=== PATIENT | female | born 1990 | race Caucasian/White ===

== ENCOUNTER 2020-04-19 14:59 | Emergency (ER) | payer OTHER, SELFPAY ==
--- NOTE | 2020-04-19 15:15 | ECG_ITS ---
Measurements Intervals [place] Rate: 69 P: 48 VA: 132 QRS: 14 QRSD: 113 T: 37 QT: 443 QTc: 476 Interpretive Statements SINUS RHYTHM INTRAVENTRICULAR CONDUCTION DELAY BASELINE ARTIFACT- I, II, III, AVR, AVL, AVF BORDERLINE ECG Electronically Signed On 04-19-2020 19:01:57 CDT by Jovany Short D.O.
[2020-04-19] MEDS: SODIUM CHLORIDE 0.9% IV 1,000 ML 999 ML (15:17)
--- NOTE | 2020-04-19 15:18 | ED.GENADULT ---
HPI - General Adult General Chief complaint: Weakness Stated complaint: nausea and vomiting Source: patient Mode of arrival: ambulatory Limitations: no limitations History of Present Illness HPI narrative: 29-year-old developed a occipital constant tight headache 03/16 at 11:00 a.m.. She awoke from a nap at 2:30 sweating with nausea. She vomited 3 times and had 2 episodes of non-bloody non-mucousy diarrhea. LMP 04/03, is not using condoms. She has a history of migraine headaches. No photophobia with this headache. She believes her father had his first heat attack when he was 19 y.o. Related Data Home Medications Medication Instructions Recorded Confirmed fluoxetine 40 mg PO DAILY 10/20/19 04/19/20 Allergies Allergy/AdvReac Type Severity Reaction Status Date / Time No Known Allergies Allergy Unverified 12/21/17 10:57 Review of Systems Constitutional: Constitutional: Denies chills and Denies fever(s) ENT: Denies nasal congestion and Denies sore throat Cardiovascular: Cardiovascular: Denies chest pain Respiratory: Respiratory: Denies cough and Denies dyspnea Gastrointestinal: Gastrointestinal: Denies abdominal pain Genitourinary: Genitourinary: Denies dysuria and Denies vaginal discharge Musculoskeletal: Musculoskeletal: Denies myalgias and Denies arthralgias Integumentary/Breasts: Skin/Breast: Denies rash Neurologic: Comments: gets migraine headaches several times/month which do no resemble the headache today. Psychiatric: Psychiatric: Denies anxiety and Denies depression [facility] Past Medical History Medical History Anxiety Migraine Family History Family History (Updated 04/19/20 @ 15:23 by Alex Senior MD) Father Diabetes mellitus Malignant neoplasm of prostate Pacemaker FHx: premature coronary heart disease, Onset Age: 17 [place] Exam Const: General: no acute distress and alert Orientation/consciousness: patient oriented x3 Eyes: EOM: EOMs intact bilaterally Direct Ophthalmoscopy: no photophobia Neck: Neck: no lymphadenopathy Chest: Chest palpation & inspection: normal inspection of the chest Resp: Auscultation: clear to auscultation bilaterally Cardio: Rate: regular rate Rhythm: regular rhythm GI: GI Palp: Yes Soft to palpation, No Tenderness to palpation present (GI) and No Guarding due to palpation present (GI) Back/Spine/Pelvis: Back: no CVA tenderness Skin: General skin exam: normal color Rashes: rash noted Neuro: General: moves all extremities Course Course Emergency Course: At 4:00 p.m. patient's headache 3/10, sweating has decreased, no nausea. Has not urinated after 800 mL saline. At 5:30 she is no longer sweating, rates her headache as a 1- 2, has no nausea or sweating. Vital Signs Vital signs: Vital Signs Temperature 36.7 C 04/19/20 15:25 Pulse Rate 70 04/19/20 15:25 Respiratory Rate 04/19/20 15:25 Blood Pressure 142/91 H 04/19/20 15:25 Pulse Oximetry 100 04/19/20 15:25 Temperature 36.7 C 04/19/20 15:25 Pulse Rate 76 04/19/20 17:51 Respiratory Rate 04/19/20 15:25 Blood Pressure 154/98 H 04/19/20 17:51 Pulse Oximetry 100 04/19/20 17:51 Medical Decision Making Vital Signs Vital Signs: Vital Signs Temperature 36.7 C 04/19/20 15:25 Pulse Rate 70 04/19/20 15:25 Respiratory Rate 04/19/20 15:25 Blood Pressure 142/91 H 04/19/20 15:25 Pulse Oximetry 100 04/19/20 15:25 Temperature 36.7 C 04/19/20 15:25 Pulse Rate 76 04/19/20 17:51 Respiratory Rate 04/19/20 15:25 Blood Pressure 154/98 H 04/19/20 17:51 Pulse Oximetry 100 04/19/20 17:51 Lab Data Result diagrams: 04/19/20 15:39 04/19/20 15:39 Labs: Lab Results 04/19/20 04/19/20 04/19/20 Range/Units 15:25 15:25 15:39 WBC 11.7 H (4.8-10.8) K/mm3 RBC 4.26 (4.20-5.40) M/mm3 Hgb 13.2 (12.0-15.
[2020-04-19 15:25] VITALS: BP 142/91; PULSE 70; RESP 19; TEMP 36.7; O2SAT 100
[2020-04-19] MEDS: METOCLOPRAMIDE HCL INJ 10 MG/2 ML VIAL IV PUSH ×2 (15:34→16:37)
[2020-04-19 15:46] LABS: Hematocrit 39.9 % (35.0-49.0); Hemoglobin 13.2 g/dL (12.0-15.0); Mean Corpuscular HGB Conc 33.1 g/dL (32.0-36.0); Mean Corpuscular Volume 93.7 fL (78.0-102.0); Mean Platelet Volume 9.5 fl (9.2-11.8); Platelet Count Result 290 K/mm3 (150-420); Red Blood Count 4.26 M/mm3 (4.20-5.40); Red Cell Distribution Width 15.2 % (11.6-14.4); White Blood Count 11.7 K/mm3 (4.8-10.8)
[2020-04-19 15:48] LABS: Add Urine Microscopic? YES; Appearance Urine Sl Cloudy (Clear); Bilirubin Urine Negative (Negative); Blood Urine 1+ (Negative); Color Urine Straw (Yellow); Glucose Urine UA Negative (Negative); Ketones Urine 1+ (Negative); Leukocyte Esterase Ur Negative (Negative); Nitrate Urine Negative (Negative); Protein Urine 2+ (Negative); Urobilinogen Urine 0.2 mg/dL (0.2-1.0)
[2020-04-19 15:49] LABS: Pregnancy On Board Control POS; Urine Pregnancy Test Negative
[2020-04-19 15:57] LABS: Squamous Epithelial Cell Urine Few /hpf (Few); WBC Urine None seen /hpf (0-3)
[2020-04-19 15:58] LABS: Amorphous Sediment Urine Moderate; Bacteria Urine Trace /hpf; Mucus Urine None seen /lpf
[2020-04-19 16:05] LABS: Alanine Aminotransferase 46 U/L (14-59); Alkaline Phosphatase 109 U/L (46-116); Aspartate Amino Transferase 29 U/L (15-37); Bilirubin,Total 0.5 mg/dL (0.00-1.00); Blood Urea Nitrogen 5 mg/dL (7-18); Calcium 8.8 mg/dL (8.5-10.1); Carbon Dioxide 23 mmol/L (21-32); Chloride 103 mmol/L (98-108); Estimated Glomerular Filt Rate > 60; Glucose 134 mg/dL (70-99); Osmolality Calculated 287 mOsm/kg (285-295); Sodium 139 mmol/L (136-145); Total Protein 8.2 g/dL (6.4-8.2); Troponin I < 0.02 ng/mL (0.00-0.056)
[2020-04-19] MEDS: LACTATED RINGERS 1,000 ML 999 ML IV CONT (16:38)
[2020-04-19 17:32] LABS: Magnesium 1.8 mg/dL (1.8-2.4)
[2020-04-19 17:51] VITALS: BP 154/98; PULSE 76; O2SAT 100
== END 2020-04-19 17:54 | disposition home or self-care (01) ==
PROVIDERS: Emergency Provider Family Medicine; PCP Family Medicine
DX: E87.6 Hypokalemia (principal); R51 Headache; R11.0 Nausea
CPT/HCPCS: 36415; 80053; 81001; 81025; 83735; 84484; 85027; 93005; 96361; 96374; 96375; 99283; 99284; J1200; J2765; J7030; J7120

== ENCOUNTER 2020-05-31 10:47 | Emergency (ER) | payer OTHER, SELFPAY ==
--- NOTE | ~2020-05-31 | US_ITS ---
US OB <= 14 weeks fetus DATE: 05/31/2020 12:02 INDICATION: 10 week gestation TECHNIQUE: Routine imaging and Doppler analysis COMPARISON: None FINDINGS: The uterus measures 9.5 cm height, 6.1 cm AP and 8.5 cm transverse dimension. A normally shaped intrauterine gestational sac is identified with a mean sac diameter of 2.51 cm, con sistent with 7 weeks 3 days estimated gestational age. [place]-rump length measurement averages 1.72 cm , consistent with 8 weeks 1 day estimated gestational age. heart rate of 169 bpm. A yolk sac is identified. The ovaries are unremarkable, with evidence of blood flow on Doppler and color flow imaging. No pelvi c mass or abnormal pelvic fluid collection is evident. IMPRESSION: Estimated gestational age of 8 weeks 1 day +/- 5 days by crown-rump length; ELINOR by ultras ound is 01/09/2021, compared to 01/08/2021 by LMP. Reviewed, dictated and finalized at [facility]. Reviewed, dictated and finalized at [facility]. IMPRESSION: Estimated gestational age of 8 weeks 1 day +/- 5 days by crown-rump length; ELINOR by ultrasound is 01/09/2021, compared to 01/08/2021 by LMP.
[2020-05-31 10:51] VITALS: BP 176/108; PULSE 104; RESP 19; TEMP 36.8; O2SAT 100
--- NOTE | 2020-05-31 11:10 | ED.NAVMDI ---
HPI - Nausea/Vomiting/Diarrhea General Chief complaint: Nausea/Vomiting/Diarrhea Stated complaint: n/v with ( 10 weeks gest) Time Seen by Provider: 05/31/20 10:51 Source: patient Mode of arrival: ambulatory Limitations: no limitations History of Present Illness HPI Narrative: This patient is a 30 year old female who presents for evaluation nausea , vomiting and diarrhea. Patient states she thinks she is 10 weeks but she has not seen OB yet. She is here for nausea, vomitin and diarrhea for 3 days. She denies fever, chills, cough, or sob. She also denies urinary symptoms or abdominal pain. She had 2 episodes diarrhea today . She reports 3 episodes of ememis today and she had too numerous to count yesterday. MD elicited complaint: nausea, vomiting and diarrhea Associated nausea: Yes Associated abdominal pain: No Related Data Allergies Allergy/AdvReac Type Severity Reaction Status Date / Time No Known Allergies Allergy Verified 05/31/20 10:55 Review of Systems Review of Systems: All systems reviewed & are unremarkable except as noted in HPI and below Constitutional: Constitutional: Denies chills and Denies fever(s) Eyes: Eyes: Reports no additional eye complaints ENT: Denies sore throat Cardiovascular: Cardiovascular: Denies chest pain Respiratory: Respiratory: Denies cough and Denies dyspnea Gastrointestinal: Gastrointestinal: Denies abdominal pain, Reports diarrhea, Reports nausea and Reports vomiting Genitourinary: Genitourinary: Denies abnormal vaginal bleeding PMFSH Family History Family History (Updated 04/19/20 @ 15:23 by Alex Senior MD) Father Diabetes mellitus Malignant neoplasm of prostate Pacemaker FHx: premature coronary heart disease, Onset Age: 17 [place] Exam Narrative: Exam Narrative: GENERAL: Well-appearing, well-nourished, and in no acute distress. HEAD: Normocephalic, atraumatic EYES: PERRLA and EOMI, conjunctiva clear without discharge THROAT:Mucous membranes moist, Oropharynx normal without erythema, exudate, peritonsillar swelling or fluctuance NECK: Supple, without lymphadenopathy or mass RESPIRATORY: No respiratory distress, Airway patent, Respirations non-labored, Clear to auscultation without rales, rhonchi or wheeze HEART: Regular rate and rhythm. No murmur heard. Normal peripheral pulses. ABDOMEN: Soft, nontender, nondistended, normal active bowel sounds. No masses. No rebound or guarding, No organomegaly. EXTREMITIES: No edema, normal strength with full range of motion. SKIN: Warm, dry, normal color without rash NEURO: Alert and oriented x3. CN 2-12 grossly intact. No focal deficits. PSYCH: Normal mood and affect. Course Reevaluation(s) Reevaluation #1: Patient states she feels better . She denies nausea or vomiting with PO challenge. Date: 05/31/20 Time: 12:49 Vital Signs Vital signs: Vital Signs Temperature 98.3 F 05/31/20 10:51 Pulse Rate 104 H 05/31/20 10:51 Respiratory Rate 19 05/31/20 10:51 Blood Pressure 176/108 H 05/31/20 10:51 Pulse Oximetry 100 05/31/20 10:51 Temperature 98.3 F 05/31/20 10:51 Pulse Rate 83 05/31/20 13:11 Respiratory Rate 18 05/31/20 13:11 Blood Pressure 155/86 H 05/31/20 13:11 Pulse Oximetry 99 05/31/20 13:11 MDM - Nausea/Vomiting/Diarrhea Lab Data Result diagrams: 05/31/20 11:17 05/31/20 11:17 Labs: Lab Results 05/31/20 05/31/20 05/31/20 Range/Units 11:17 11:17 11:17 WBC 11.7 H (4.5-10.0) K/mm3 RBC 4.52 (4.2-5.4) M/mm3 Hgb 13.9 (12.0-15.0) g/dL Hct 41.1 (37.0-47.0) % MCV 90.9 (80-100) fl MCH 30.8 (26-34) pg MCHC 33.8 (32-36) g/dl RDW 13.6 (11.5-14.5) % Plt Count 377 H (150-375) k/mm3 MPV 9.1 (7.4-10.4) fl Immature Gran % (Auto) 0.5 (0-0.5) % Neut % (Auto) 83.2 H (45.5-73.1) % Lymph % (Auto) 11.3 L (18.3-44.2) % [place] % (Auto) 4.4 (2.6-8.5) % Eos %
[2020-05-31] MEDS: METOCLOPRAMIDE HCL INJ 10 MG/2 ML VIAL IV PUSH (11:11)
[2020-05-31] MEDS: diphenhydrAMINE HCl INJ 50 MG/ML VIAL 25 MG IV PUSH (11:15)
[2020-05-31] MEDS: DEXTROSE 5%/LACTATED RINGERS 1,000 ML 1000 ML IV CONT (11:18)
[2020-05-31 11:25] VITALS: BP 155/99; BP 159/93; PULSE 82; PULSE 85
[2020-05-31 11:26] VITALS: BP 148/105; PULSE 90
[2020-05-31 11:30] LABS: Basophils Percent Auto 0.3 % (0.2-1.2); Eosinophils Percent Auto 0.3 % (0-4.4); Hematocrit 41.1 % (37.0-47.0); Hemoglobin 13.9 g/dL (12.0-15.0); Immature Granulocyte Absolute 0.06 K/mm3 (0.00-0.031); Immature Granulocyte Percent A 0.5 % (0-0.5); Lymphocytes Absolute Auto 1.32 K/mm3 (0.9-3.2); Lymphocytes Percent Auto 11.3 % (18.3-44.2); Mean Corpuscular HGB Conc 33.8 g/dl (32-36); Mean Corpuscular Hemoglobin 30.8 pg (26-34); Mean Corpuscular Volume 90.9 fl (80-100); Mean Platelet Volume 9.1 fl (7.4-10.4); Monocytes Absolute Auto 0.5 K/mm3 (0.1-0.6); Monocytes Percent Auto 4.4 % (2.6-8.5); Neutrophils Absolute Auto 9.7 K/mm3 (1.3-6.7); Neutrophils Percent Auto 83.2 % (45.5-73.1); Platelet Count Result 377 k/mm3 (150-375); Red Blood Count 4.52 M/mm3 (4.2-5.4); Red Cell Distribution Width 13.6 % (11.5-14.5); White Blood Count 11.7 K/mm3 (4.5-10.0)
[2020-05-31 11:40] LABS: Alanine Aminotransferase 41 U/L (4-35); Albumin Level 4.8 g/dL (3.5-5.1); Alkaline Phosphatase 133 U/L (38-126); Anion Gap 16.3 mmol/L (7-16); Aspartate Amino Transferase 34 U/L (14-36); Bilirubin,Total 0.4 mg/dL (0.2-1.3); Blood Urea Nitrogen 5 mg/dL (7-17); Carbon Dioxide 23 mmol/L (22-30); Chloride 101 mmol/L (98-107); Estimated CRCL calculation 178 ml/min; Estimated Glomerular Filt Rate > 60; Glucose 105 mg/dL (65-105); Lipase 69 U/L (23-300); Potassium 3.3 mmol/L (3.4-5.0); Sodium 137 mmol/L (137-145)
[2020-05-31 11:41] LABS: Add Urine Microscopic? YES; Appearance Urine Cloudy (Clear); Bacteria Urine Trace /hpf; Bilirubin Urine Negative (Negative); Blood Urine 2+ (Negative); Color Urine Yellow (Yellow); Glucose Urine UA Negative (Negative); Ketones Urine 1+ mg/dL (Negative); Leukocyte Esterase Ur Trace LEU/UL (Negative); Mucus Urine Heavy /lpf; Nitrate Urine Negative (Negative); Protein Urine 2+ mg/dL (Negative); Specific Grav Ur 1.024 (1.001-1.035); Squamous Epithelial Cell Urine Many /hpf (Few); Urobilinogen Urine Negative mg/dL (<2.0)
[2020-05-31 13:11] VITALS: BP 155/86; PULSE 83; RESP 18; O2SAT 99
== END 2020-05-31 13:12 | disposition home or self-care (01) ==
PROVIDERS: Emergency Provider General Practice; PCP Family Medicine
DX: O21.8 Other vomiting complicating pregnancy (principal); K52.9 Noninfective gastroenteritis and colitis, unspecified; Z3A.08 8 weeks gestation of pregnancy
CPT/HCPCS: 36415; 76801; 80053; 81001; 81025; 83690; 84702; 85025; 87086; 87088; 96361; 96374; 96375; 99284; J1200; J2765; J7121

== ENCOUNTER 2020-06-11 23:52 | Emergency (ER) | payer OTHER, SELFPAY ==
[2020-06-11 23:55] VITALS: BP 150/105; PULSE 120; RESP 19; TEMP 36.4; O2SAT 98
[2020-06-12 00:23] LABS: Basophils Percent Auto 0.3 % (0.2-1.2); Eosinophils Percent Auto 0.3 % (0-4.4); Hematocrit 42.8 % (37.0-47.0); Hemoglobin 14.8 g/dL (12.0-15.0); Immature Granulocyte Absolute 0.07 K/mm3 (0.00-0.031); Immature Granulocyte Percent A 0.5 % (0-0.5); Lymphocytes Absolute Auto 2.11 K/mm3 (0.9-3.2); Mean Corpuscular HGB Conc 34.6 g/dl (32-36); Mean Corpuscular Hemoglobin 31.2 pg (26-34); Mean Corpuscular Volume 90.3 fl (80-100); Mean Platelet Volume 9.1 fl (7.4-10.4); Monocytes Absolute Auto 0.7 K/mm3 (0.1-0.6); Monocytes Percent Auto 5.3 % (2.6-8.5); Neutrophils Absolute Auto 11.1 K/mm3 (1.3-6.7); Neutrophils Percent Auto 78.6 % (45.5-73.1); Platelet Count Result 386 k/mm3 (150-375); Red Blood Count 4.74 M/mm3 (4.2-5.4); Red Cell Distribution Width 13.2 % (11.5-14.5); White Blood Count 14.1 K/mm3 (4.5-10.0)
[2020-06-12 00:35] LABS: Alanine Aminotransferase 36 U/L (4-35); Albumin Level 4.9 g/dL (3.5-5.1); Alkaline Phosphatase 126 U/L (38-126); Anion Gap 15.3 mmol/L (7-16); Aspartate Amino Transferase 32 U/L (14-36); Bilirubin,Total 0.8 mg/dL (0.2-1.3); Blood Urea Nitrogen 5 mg/dL (7-17); Calcium 9.8 mg/dL (8.4-10.2); Carbon Dioxide 24 mmol/L (22-30); Chloride 97 mmol/L (98-107); Estimated CRCL calculation 146 ml/min; Estimated Glomerular Filt Rate > 60; Glucose 122 mg/dL (65-105); Lipase 66 U/L (23-300); Potassium 3.3 mmol/L (3.4-5.0); Sodium 133 mmol/L (137-145)
[2020-06-12] MEDS: DEXTROSE 5%/0.45% SOD CHL 1,000 ML 1000 ML IV CONT (00:51)
[2020-06-12 00:52] LABS: Add Urine Microscopic? YES; Appearance Urine Cloudy (Clear); Bacteria Urine Trace /hpf; Bilirubin Urine Negative (Negative); Blood Urine Negative (Negative); Color Urine Yellow (Yellow); Glucose Urine UA Negative (Negative); Ketones Urine 1+ mg/dL (Negative); Leukocyte Esterase Ur Trace LEU/UL (Negative); Mucus Urine Heavy /lpf; Nitrate Urine Negative (Negative); Protein Urine 2+ mg/dL (Negative); Specific Grav Ur 1.026 (1.001-1.035); Squamous Epithelial Cell Urine Many /hpf (Few); WBC Urine 16-20 /hpf
[2020-06-12] MEDS: METOCLOPRAMIDE HCL INJ 10 MG/2 ML VIAL IV PUSH (00:52)
--- NOTE | 2020-06-12 01:01 | ED.NAVMDI ---
HPI - Nausea/Vomiting/Diarrhea General Chief complaint: Nausea/Vomiting/Diarrhea Stated complaint: vomiting x 4 days 10 weeks preg Time Seen by Provider: 06/12/20 00:06 History of Present Illness HPI Narrative: She is currently 10 weeks . She reports nataly she has been vomiting for the past 4 days. She tried compazine without relief. No abdominal pain, vaginal bleeding, discharge, dysuria. Related Data Allergies Allergy/AdvReac Type Severity Reaction Status Date / Time No Known Allergies Allergy Verified 06/12/20 00:15 Review of Systems Review of Systems: All systems reviewed & are unremarkable except as noted in HPI and below Constitutional: Constitutional: Denies fever(s) and Denies weakness Cardiovascular: Cardiovascular: Denies chest pain Respiratory: Respiratory: Denies dyspnea Gastrointestinal: Gastrointestinal: Denies abdominal pain, Denies diarrhea, Reports nausea and Reports vomiting Genitourinary: Genitourinary: Denies hematuria and Denies dysuria Neurologic: Reports dizziness and Reports weakness PMFSH Past Medical History Medical History Anxiety Migraine Family History Family History Father Diabetes mellitus Malignant neoplasm of prostate Pacemaker FHx: premature coronary heart disease, Onset Age: 17 [place] Social History Social History Gender identity (if verbalized by the patient): Female Exam Const: General: no acute distress and alert Orientation/consciousness: patient oriented x3 HENMT: Head: normal to inspection Resp: Effort & Inspection: normal respiratory effort Auscultation: clear to auscultation bilaterally Cardio: Rate: regular rate Rhythm: regular rhythm GI: GI Palp: Yes Soft to palpation and No Tenderness to palpation present (GI) Skin: General skin exam: normal color Neuro: General: patient oriented x3 and moves all extremities Speech: normal speech Extrem: General: normal to inspection Course Vital Signs Vital signs: Vital Signs Temperature 36.4 C L 06/11/20 23:55 Pulse Rate 120 H 06/11/20 23:55 Respiratory Rate 19 06/11/20 23:55 Blood Pressure 150/105 H 06/11/20 23:55 Pulse Oximetry 98 06/11/20 23:55 Temperature 36.4 C L 06/11/20 23:55 Pulse Rate 94 06/12/20 02:20 Respiratory Rate 16 06/12/20 02:20 Blood Pressure 142/86 H 06/12/20 02:20 Pulse Oximetry 99 06/12/20 02:20 MDM - Nausea/Vomiting/Diarrhea MDM Narrative Medical decision making narrative: Feeling better after fluids. Medical Records Attestation: I reviewed the patient's medical records. Lab Data Attestation: I reviewed the patient's lab results. Result diagrams: 06/12/20 00:17 06/12/20 00:17 Labs: Lab Results 06/12/20 06/12/20 06/12/20 Range/Units 00:17 00:17 00:32 WBC 14.1 H (4.5-10.0) K/mm3 RBC 4.74 (4.2-5.4) M/mm3 Hgb 14.8 (12.0-15.0) g/dL Hct 42.8 (37.0-47.0) % MCV 90.3 (80-100) fl MCH 31.2 (26-34) pg MCHC 34.6 (32-36) g/dl RDW 13.2 (11.5-14.5) % Plt Count 386 H (150-375) k/mm3 MPV 9.1 (7.4-10.4) fl Immature Gran % (Auto) 0.5 (0-0.5) % Neut % (Auto) 78.6 H (45.5-73.1) % Lymph % (Auto) 15.0 L (18.3-44.2) % [place] % (Auto) 5.3 (2.6-8.5) % Eos % (Auto) 0.3 (0-4.4) % Baso % (Auto) 0.3 (0.2-1.2) % Lymph # (Auto) 2.11 (0.9-3.2) K/mm3 [place] # (Auto) 0.7 H (0.1-0.6) K/mm3 Eos # (Auto) 0.0 (0-0.3) K/mm3 Baso # (Auto) 0.0 (0.0-0.1) K/mm3 Abs Immat Gran (auto) 0.07 H (0.00-0.031) K/mm3 Absolute Neuts (auto) 11.1 H (1.3-6.7) K/mm3 Absolute Nucleated RBC 0.0 (0.0-0.012) K/mm3 Nucleated RBC % 0.0 (0.0-0.2) % Sodium 133 L (137-145) mmol/L Potassium 3.3 L (3.4-5.0) mmol/L Chloride 97 L (98-107) mmol/L Carbon Dioxid
[2020-06-12 02:20] VITALS: BP 142/86; PULSE 94; RESP 16; O2SAT 99
== END 2020-06-12 02:24 | disposition home or self-care (01) ==
PROVIDERS: Emergency Provider Emergency Medicine; PCP Family Medicine
DX: O21.9 Vomiting of pregnancy, unspecified (principal); Z3A.10 10 weeks gestation of pregnancy
CPT/HCPCS: 36415; 80053; 81001; 83690; 85025; 87086; 87088; 96361; 96374; 99284; J2765

== ENCOUNTER 2020-08-01 09:01 | Outpatient (CLI) | payer OTHER, SELFPAY ==
[2020-08-01 10:34] LABS: Hematocrit 33.8 % (37.0-47.0); Hemoglobin 11.8 g/dL (12.0-15.0); Mean Corpuscular HGB Conc 34.9 g/dl (32-36); Mean Corpuscular Hemoglobin 31.8 pg (26-34); Mean Corpuscular Volume 91.1 fl (80-100); Mean Platelet Volume 9.1 fl (7.4-10.4); Platelet Count Result 295 k/mm3 (150-375); Red Blood Count 3.71 M/mm3 (4.2-5.4); Red Cell Distribution Width 13.8 % (11.5-14.5); White Blood Count 11.3 K/mm3 (4.5-10.0)
[2020-08-01 10:47] LABS: Glucose 1 Hour PP 50gm Dose 120 mg/dL
[2020-08-01 11:35] LABS: HIV 1/2 Ab P24 Ag Result Negative (Negative)
[2020-08-01 13:50] LABS: Hepatitis B Surface Antigen Negative (Negative); Rubella IgG Antibody 37.7 IU/ML
[2020-08-04 11:44] LABS: Rapid Plasma Reagin Non-Reactive (NonReactive)
[2020-08-06 14:42] LABS: CMV IgG Antibody <0.60 U/mL (<0.60)
== END 2020-08-01 09:02 | disposition home or self-care (01) ==
LOC: ANHLAB 09:04
PROVIDERS: Visit Provider Obstetrics & Gynecology
DX: N92.5 Other specified irregular menstruation (principal); E66.9 Obesity, unspecified
CPT/HCPCS: 36415; 82947; 84702; 85027; 86592; 86644; 86703; 86747; 86762; 86787; 86850; 86900; 86901; 87086; 87088; 87340; G0432

== ENCOUNTER 2020-11-11 14:20 | Outpatient (CLI) | payer OTHER, SELFPAY ==
[2020-11-11 16:12] LABS: Hematocrit 29.7 % (37.0-47.0); Hemoglobin 9.6 g/dL (12.0-15.0); Mean Corpuscular HGB Conc 32.3 g/dl (32-36); Mean Corpuscular Volume 89.7 fl (80-100); Mean Platelet Volume 8.8 fl (7.4-10.4); Platelet Count Result 252 k/mm3 (150-375); Red Blood Count 3.31 M/mm3 (4.2-5.4); White Blood Count 10.9 K/mm3 (4.5-10.0)
[2020-11-11 16:16] LABS: Glucose 1 Hour PP 50gm Dose 160 mg/dL
[2020-11-11 17:04] LABS: HIV 1/2 Ab P24 Ag Result Negative (Negative)
== END 2020-11-11 14:21 | disposition home or self-care (01) ==
LOC: ANHLAB 14:22
PROVIDERS: Visit Provider Obstetrics & Gynecology
DX: Z34.92 Encounter for supervision of normal pregnancy, unspecified, second trimester (principal); Z3A.00 Weeks of gestation of pregnancy not specified
CPT/HCPCS: 36415; 82947; 85027; 86703; G0432

== ENCOUNTER 2020-11-20 08:17 | Outpatient (CLI) | payer OTHER, SELFPAY ==
[2020-11-20 09:04] LABS: Glucose Fasting Gestational 93 mg/dL (>/=95)
[2020-11-20 10:47] LABS: Glucose 1 Hour Gest 203 mg/dL (>/=180)
[2020-11-20 11:27] LABS: Glucose 2 Hour Gest 177 mg/dL (>/= 155)
[2020-11-20 12:57] LABS: Glucose 3 Hour Gest 140 mg/dL (>/=140)
== END 2020-11-20 08:18 | disposition home or self-care (01) ==
PROVIDERS: Visit Provider Obstetrics & Gynecology
DX: R73.09 Other abnormal glucose (principal)
CPT/HCPCS: 36415; 82951; 82952

== ENCOUNTER 2020-12-01 11:51 | Outpatient (RCR) | payer OTHER, SELFPAY ==
--- NOTE | ~2020-12-01 | US_ITS ---
EXAMINATION: US OB BPP wo non-stress DATE: 12/01/2020 12:56 INDICATION: Maternal gestational diabetes. Assess biophysical profile. TECHNIQUE: Real-time pelvic ultrasound was performed. The interpreting radiologist was not present fo r the study. COMPARISON: None. FINDINGS: There is a single living fetus in vertex presentation. The placenta is fundal. heart rate is 1 62 beats per minute (bpm). Biophysical profile performed by the technologist: breathing (30 sec sustained breathing in 30 minutes): 2 out of 2 movement (3 gross body movements in 30 minutes): 2 out of 2 tone (one episode of xkajxac-coolyrfbd-myojcph limb movement): 2 out of 2 Amniotic fluid pocket (2 cm): 2 out of 2 Total score: 8 out of 8 IMPRESSION: 1. Single living fetus in vertex presentation with heart rate of 162 bpm. 2. Biophysical profile 8 out of 8. Reviewed, dictated and finalized at location [facility]. BLOCKER
[2020-12-01 18:28] VITALS: BP 122/76
== END 2020-12-22 07:31 | disposition home or self-care (01) ==
LOC: ANHOBOP 11:51
PROVIDERS: Visit Provider Obstetrics & Gynecology
DX: P59.9 Neonatal jaundice, unspecified (principal)
CPT/HCPCS: 59025; 76819

== ENCOUNTER 2020-12-05 11:10 | Outpatient (CLI) | payer OTHER, SELFPAY ==
[2020-12-05 11:45] VITALS: BP 142/93; PULSE 110
[2020-12-05 12:00] VITALS: BP 118/82; PULSE 111
[2020-12-05 12:10] LABS: Basophils Percent Auto 0.2 % (0.2-1.2); Eosinophils Percent Auto 0.2 % (0-4.4); Hematocrit 30.2 % (37.0-47.0); Hemoglobin 9.5 g/dL (12.0-15.0); Immature Granulocyte Absolute 0.08 K/mm3 (0.00-0.031); Immature Granulocyte Percent A 0.8 % (0-0.5); Lymphocytes Absolute Auto 1.32 K/mm3 (0.9-3.2); Lymphocytes Percent Auto 13.3 % (18.3-44.2); Mean Corpuscular HGB Conc 31.5 g/dl (32-36); Mean Corpuscular Hemoglobin 28.4 pg (26-34); Mean Corpuscular Volume 90.1 fl (80-100); Mean Platelet Volume 9.7 fl (7.4-10.4); Monocytes Absolute Auto 0.6 K/mm3 (0.1-0.6); Monocytes Percent Auto 6.4 % (2.6-8.5); Neutrophils Absolute Auto 7.9 K/mm3 (1.3-6.7); Neutrophils Percent Auto 79.1 % (45.5-73.1); Platelet Count Result 222 k/mm3 (150-375); Red Blood Count 3.35 M/mm3 (4.2-5.4); Red Cell Distribution Width 16.3 % (11.5-14.5)
[2020-12-05 12:14] LABS: Add Urine Microscopic? YES; Appearance Urine Cloudy (Clear); Bacteria Urine 2+ /hpf; Bilirubin Urine Negative (Negative); Blood Urine 1+ (Negative); Color Urine Yellow (Yellow); Glucose Urine UA 1+ mg/dL (Negative); Ketones Urine Negative (Negative); Leukocyte Esterase Ur Negative LEU/UL (NEGATIVE); Mucus Urine Rare /lpf; Nitrate Urine Negative (Negative); Protein Urine 1+ mg/dL (Negative); Specific Grav Ur 1.016 (1.001-1.035); Squamous Epithelial Cell Urine Many /hpf (Few); Urobilinogen Urine Negative mg/dL (<2.0)
[2020-12-05 12:15] VITALS: BP 126/82; PULSE 99
[2020-12-05 12:22] LABS: Alanine Aminotransferase 14 U/L (4-35); Albumin Level 3.7 g/dL (3.5-5.1); Alkaline Phosphatase 106 U/L (38-126); Anion Gap 7 mmol/L (8-16); Aspartate Amino Transferase 19 U/L (14-36); Bilirubin,Total 0.3 mg/dL (0.2-1.3); Blood Urea Nitrogen 6 mg/dL (7-17); Calcium 9.3 mg/dL (8.4-10.2); Carbon Dioxide 21 mmol/L (22-30); Chloride 108 mmol/L (98-107); Estimated Glomerular Filt Rate > 60; Glucose 109 mg/dL (65-105); Potassium 3.5 mmol/L (3.4-5.0); Sodium 136 mmol/L (137-145); Uric Acid 4.9 mg/dL (2.5-7.5)
[2020-12-05 12:30] VITALS: BP 128/81; PULSE 101
[2020-12-05 12:37] LABS: Creatinine Urine 81.7 mg/dL; Total Protein Urine Random 17 mg/dL; Ur Ttl Prot Creatinine Ratio 0.21 mg/mg (0-0.20)
[2020-12-05 12:45] VITALS: BP 126/81; PULSE 98
--- NOTE | 2020-12-05 12:52 | PC.NURSE ---
Called Dr. Graham with lab results and BPs. March D/C home.
== END 2020-12-05 13:00 | disposition home or self-care (01) ==
LOC: ANHOBOP 11:19 → ANHOBPP 12-10 06:23
PROVIDERS: Visit Provider Obstetrics & Gynecology
DX: O13.9 Gestational [pregnancy-induced] hypertension without significant proteinuria, unspecified trimester (principal); Z3A.00 Weeks of gestation of pregnancy not specified
CPT/HCPCS: 36415; 59025; 80053; 81001; 82570; 84156; 84550; 85025; 87086; 99199

== ENCOUNTER 2020-12-11 15:56 | Outpatient (CLI) | payer OTHER, SELFPAY ==
[2020-12-11] VITALS (7 sets, daily range): BP systolic 118–129; BP diastolic 69–81; PULSE 86–111; RESP 20; TEMP 36.6; BMI 36.9
--- NOTE | ~2020-12-11 | US_ITS ---
EXAMINATION: US OB BPP wo non-stress DATE: 12/11/2020 17:03 INDICATION: Hypertension. Third trimester. TECHNIQUE: Real-time pelvic ultrasound was performed. COMPARISON: Ultrasound 12/01/2020 FINDINGS: There is a single living fetus in vertex presentation. The placenta is fundal. heart rate is 1 52 beats per minute (bpm). Biophysical profile performed by the technologist: breathing (30 sec sustained breathing in 30 minutes): 2 out of 2 movement (3 gross body movements in 30 minutes): 2 out of 2 tone (one episode of uikbkej-nnqtxyaqa-iliknrh limb movement): 2 out of 2 Amniotic fluid pocket (2 cm): 2 out of 2 Total score: 8 out of 8 IMPRESSION: 1. Single living fetus in vertex presentation. 2. Biophysical profile 8 out of 8. Reviewed, dictated and finalized at [facility]. [employer]
[2020-12-11 16:39] LABS: Basophils Percent Auto 0.3 % (0.2-1.2); Eosinophils Absolute Auto 0.1 K/mm3 (0-0.3); Eosinophils Percent Auto 0.5 % (0-4.4); Hematocrit 33.3 % (37.0-47.0); Hemoglobin 10.3 g/dL (12.0-15.0); Immature Granulocyte Absolute 0.13 K/mm3 (0.00-0.031); Immature Granulocyte Percent A 1.2 % (0-0.5); Lymphocytes Percent Auto 16.5 % (18.3-44.2); Mean Corpuscular HGB Conc 30.9 g/dl (32-36); Mean Corpuscular Hemoglobin 29.2 pg (26-34); Mean Corpuscular Volume 94.3 fl (80-100); Mean Platelet Volume 9.8 fl (7.4-10.4); Monocytes Absolute Auto 0.8 K/mm3 (0.1-0.6); Monocytes Percent Auto 7.4 % (2.6-8.5); Neutrophils Absolute Auto 8.1 K/mm3 (1.3-6.7); Neutrophils Percent Auto 74.1 % (45.5-73.1); Platelet Count Result 243 k/mm3 (150-375); Red Blood Count 3.53 M/mm3 (4.2-5.4); Red Cell Distribution Width 16.4 % (11.5-14.5); White Blood Count 10.9 K/mm3 (4.5-10.0)
[2020-12-11 16:40] LABS: Add Urine Microscopic? NO; Appearance Urine Clear (Clear); Bilirubin Urine Negative (Negative); Blood Urine Negative (Negative); Color Urine Straw (Yellow); Glucose Urine UA Negative (Negative); Ketones Urine Negative (Negative); Leukocyte Esterase Ur Negative LEU/UL (NEGATIVE); Nitrate Urine Negative (Negative); Protein Urine Negative (Negative); Specific Grav Ur 1.006 (1.001-1.035); Urobilinogen Urine Negative mg/dL (<2.0)
--- NOTE | 2020-12-11 16:50 | PC.NURSE ---
pt to ultrasound per wheelchair.
[2020-12-11 17:07] LABS: Alanine Aminotransferase 13 U/L (4-35); Albumin Level 3.8 g/dL (3.5-5.1); Alkaline Phosphatase 118 U/L (38-126); Anion Gap 6 mmol/L (8-16); Aspartate Amino Transferase 17 U/L (14-36); Bilirubin,Total 0.3 mg/dL (0.2-1.3); Blood Urea Nitrogen 4 mg/dL (7-17); Calcium 9.6 mg/dL (8.4-10.2); Carbon Dioxide 21 mmol/L (22-30); Chloride 110 mmol/L (98-107); Estimated Glomerular Filt Rate > 60; Glucose 94 mg/dL (65-105); Potassium 3.9 mmol/L (3.4-5.0); Sodium 137 mmol/L (137-145); Uric Acid 4.5 mg/dL (2.5-7.5)
--- NOTE | 2020-12-11 17:09 | PC.NURSE ---
pt returned from ultrasound per wheelchair.
[2020-12-11 18:10] LABS: Creatinine Urine 26.1 mg/dL; Total Protein Urine Random 19 mg/dL; Ur Ttl Prot Creatinine Ratio 0.73 mg/mg (0-0.20)
== END 2020-12-11 19:34 | disposition home or self-care (01) ==
LOC: ANHOBOP 16:00 → ANHOBPP 16:03
PROVIDERS: Visit Provider Obstetrics & Gynecology
DX: O13.9 Gestational [pregnancy-induced] hypertension without significant proteinuria, unspecified trimester (principal); Z3A.00 Weeks of gestation of pregnancy not specified
CPT/HCPCS: 36415; 59025; 76819; 80053; 81003; 82570; 84156; 84550; 85025; 87086; 99199

== ENCOUNTER 2020-12-18 15:32 | Inpatient (IN) | payer OTHER, SELFPAY ==
[2020-12-18] VITALS (11 sets, daily range): BP systolic 115–152; BP diastolic 84–95; PULSE 93–122; TEMP 36.3–36.8; BMI 37.4
[2020-12-18 17:11] LABS: Basophils Percent Auto 0.2 % (0.2-1.2); Eosinophils Percent Auto 0.2 % (0-4.4); Hematocrit 34.7 % (37.0-47.0); Hemoglobin 11.2 g/dL (12.0-15.0); Immature Granulocyte Absolute 0.18 K/mm3 (0.00-0.031); Immature Granulocyte Percent A 1.4 % (0-0.5); Lymphocytes Absolute Auto 1.62 K/mm3 (0.9-3.2); Mean Corpuscular HGB Conc 32.3 g/dl (32-36); Mean Corpuscular Hemoglobin 29.8 pg (26-34); Mean Corpuscular Volume 92.3 fl (80-100); Mean Platelet Volume 9.7 fl (7.4-10.4); Monocytes Absolute Auto 0.7 K/mm3 (0.1-0.6); Monocytes Percent Auto 5.8 % (2.6-8.5); Neutrophils Absolute Auto 9.9 K/mm3 (1.3-6.7); Neutrophils Percent Auto 79.4 % (45.5-73.1); Platelet Count Result 237 k/mm3 (150-375); Red Blood Count 3.76 M/mm3 (4.2-5.4); Red Cell Distribution Width 16.8 % (11.5-14.5); White Blood Count 12.4 K/mm3 (4.5-10.0)
[2020-12-18] MEDS: DINOPROSTONE 10 MG VAG INSERT VAGINAL (17:29)
--- NOTE | 2020-12-18 18:30 | PM.IMHP ---
H&P: HPI History of Present Illness Date/Time: 12/18/20 18:30 Chief Complaint: induction of labor Narrative: Lalita Villagomez is a 30 yo @ 37.0wks who presented to L&D for scheduled IOL due to pre-eclampsia w/o SF and A2GDM. She has been undergoing testing which is reassuring. Good movement. No contractions, VB, or LOF. She has had regular care. Her is complicated by: - Pre-eclampsia w/o SF - A2GDM on metformin 500mg qd - Undesired future fertility; consents signed 09/02/20 - H/o LEEP - Anemia on iron BID Review of Systems Constitutional: Constitutional: Denies fever(s) Eyes: Eyes: Denies change in vision Cardiovascular: Cardiovascular: Denies chest pain and Denies rapid heart rate Respiratory: Respiratory: Denies cough and Denies dyspnea Gastrointestinal: Gastrointestinal: Denies nausea and Denies vomiting Genitourinary: Genitourinary: Denies vaginal discharge Neurologic: Denies headache(s) Psychiatric: Psychiatric: Denies anxiety and Denies depression [facility] Past Medical History Medical History (Updated 12/18/20 @ 20:21 by Amelia Graham MD) Anxiety Migraine Family History Family History Father Diabetes mellitus Malignant neoplasm of prostate Pacemaker FHx: premature coronary heart disease, Onset Age: 19 [place] Social History Social History Smoking status: Never smoker Gender identity (if verbalized by the patient): Female Spiritual care concerns: No Meds Home Medications and Allergies Home Medications Medication Instructions Recorded Confirmed Type Advantage with Iron 12/18/20 History metformin 500 mg PO DAILY 12/18/20 12/18/20 History Allergies Allergy/AdvReac Type Severity Reaction Status Date / Time No Known Allergies Allergy Verified 12/18/20 16:46 Vital Signs Vital Signs - 24 hr 12/18/20 16:02 12/18/20 16:31 12/18/20 16:46 Temperature Pulse Rate 122 H 102 H 102 H Blood Pressure 125/90 131/95 H 134/90 12/18/20 16:49 12/18/20 17:01 12/18/20 18:01 Temperature Pulse Rate 103 H 97 Blood Pressure 134/90 115/85 134/90 12/18/20 18:31 12/18/20 19:01 12/18/20 19:31 Temperature Pulse Rate 98 93 115 H Blood Pressure 152/85 H 143/85 H 143/86 H 12/18/20 19:36 Temperature 36.8 C Pulse Rate Blood Pressure Exam Const: General: cooperative, healthy appearing, comfortable and no acute distress Resp: Effort & Inspection: normal respiratory effort and able to speak in complete sentences Cardio: Rate: regular rate GI: GI Palp: Yes Soft to palpation : Other: FHT's: 140's/ mod [place]/ + accels/ occasional mild variable decels - cat 2, reassuring TOCO: irregular ctx's Cervix: /-3 Presentation: cephalic Membranes: intact Skin: General skin exam: normal color Neuro: General: patient oriented x3 Psych: Appearance: grossly normal Affect: normal affect Attitude: cooperative H&P: Results Labs Labs: Short CBC 12/18/20 Range/Units 17:04 WBC 12.4 H (4.5-10.0) K/mm3 Hgb 11.2 L (12.0-15.0) g/dL Hct 34.7 L (37.0-47.0) % Plt Count 237 (150-375) k/mm3 Assessment and Plan Assessment and plan (1) Preeclampsia: Qualifiers: Trimester: third trimester Qualified Code(s): O14.93 - Unspecified pre-eclampsia, third trimester Code(s): O14.90 - Unspecified pre-eclampsia, unspecified trimester Status: Acute (2) Gestational diabetes: Qualifiers: Gestational diabetes mellitus control: oral hypoglycemic-controlled Trimester: third trimester Qualified Code(s): O24.415 - Gestational diabetes mellitus in , controlled by oral hypoglycemic drugs Code(s): O24.419 - Gestational diabetes mellitus in , unspecified control Status: Acute (3) Encounter for induction of labor: Code(s): Z34.90
--- NOTE | 2020-12-18 18:35 | WPDHPUPDATE1 ---
History and Physical Update Update Date/Time: 12/18/20 18:35 History and Physical has been reviewed, including an updated exam of the patient. There are NO changes in the patient's condition. Risks, benefits, and alternatives have been discussed and questions answered. Patient agrees to proceed with procedure.
[2020-12-18 22:13] LABS: Glucose Point of Care 104 (65-105)
[2020-12-19] VITALS (146 sets, daily range): BP systolic 107–170; BP diastolic 55–107; PULSE 71–124; RESP 17–18; TEMP 36.1–37.4; O2SAT 93–100
[2020-12-19 04:52] LABS: Glucose Point of Care 95 (65-105)
[2020-12-19] MEDS: LACTATED RINGERS 1,000 ML 125 ML IV CONT ×3 (06:20→21:07)
[2020-12-19] MEDS: OXYTOCIN 30 UNITS/NS 500 ML 30 UNITS/500 ML BAG IV CONT (06:22)
--- NOTE | 2020-12-19 06:22 | WPDANESEPP ---
Anes - Eval Pre Procedure Procedure: Labor epidural Date/Time: 12/19/20 06:22 Surgeon: Ellyn Preop Diagnosis: Abd pain with contractions Pre Op Diagnosis: Induction of Labor Patient Data Age: 30 Gender: F Height: 5 ft 4 in Weight: 99 kg Last Vital Signs Temp 97.3 F L 12/19/20 04:14 Pulse 106 H 12/19/20 06:18 BP 143/91 H 12/19/20 06:18 Allergies Allergy/AdvReac Type Severity Reaction Status Date / Time No Known Allergies Allergy Verified 12/18/20 16:46 Home Medications Medication Instructions Recorded Confirmed Type Advantage with Iron 12/18/20 History metformin 500 mg PO DAILY 12/18/20 12/18/20 History Laboratory Tests 12/18/20 12/18/20 12/18/20 17:04 17:04 17:04 WBC 12.4 K/mm3 H K/mm3 (4.5-10.0) RBC 3.76 M/mm3 L M/mm3 (4.2-5.4) Hgb 11.2 g/dL L g/dL (12.0-15.0) Hct 34.7 % L % (37.0-47.0) MCV 92.3 fl fl (80-100) MCH 29.8 pg pg (26-34) MCHC 32.3 g/dl g/dl (32-36) RDW 16.8 % H % (11.5-14.5) Plt Count 237 k/mm3 k/mm3 (150-375) MPV 9.7 fl fl (7.4-10.4) Immature Gran % (Auto) 1.4 % H % (0-0.5) Neut % (Auto) 79.4 % H % (45.5-73.1) Lymph % (Auto) 13.0 % L % (18.3-44.2) [place] % (Auto) 5.8 % % (2.6-8.5) Eos % (Auto) 0.2 % % (0-4.4) Baso % (Auto) 0.2 % % (0.2-1.2) Lymph # (Auto) 1.62 K/mm3 K/mm3 (0.9-3.2) [place] # (Auto) 0.7 K/mm3 H K/mm3 (0.1-0.6) Eos # (Auto) 0.0 K/mm3 K/mm3 (0-0.3) Baso # (Auto) 0.0 K/mm3 K/mm3 (0.0-0.1) Abs Immat Gran (auto) 0.18 K/mm3 H K/mm3 (0.00-0.031) Absolute Neuts (auto) 9.9 K/mm3 H K/mm3 (1.3-6.7) Absolute Nucleated RBC 0.0 K/mm3 K/mm3 (0.0-0.012) Nucleated RBC % 0.0 % % (0.0-0.2) POC Capillary Glucose RPR Pending Blood Type A Positive Antibody Screen Negative 12/18/20 12/19/20 22:10 04:49 WBC RBC Hgb Hct MCV MCH MCHC RDW Plt Count MPV Immature Gran % (Auto) Neut % (Auto) Lymph % (Auto) [place] % (Auto) Eos % (Auto) Baso % (Auto) Lymph # (Auto) [place] # (Auto) Eos # (Auto) Baso # (Auto) Abs Immat Gran (auto) Absolute Neuts (auto) Absolute Nucleated RBC Nucleated RBC % POC Capillary Glucose 104 mg/dl mg/dl 95 mg/dl mg/dl (65-105) (65-105) RPR Blood Type Antibody Screen Patient hx anesthesia problems: none Family hx anesthesia problems: none PMFSH Past Medical History Medical History Anxiety Depression Gestational diabetes Migraine Obesity Preeclampsia Family History Family History Father Diabetes mellitus Malignant neoplasm of prostate Pacemaker FHx: premature coronary heart disease, Onset Age: 19 [place] Social History Social History Smoking status: Never smoker Gender identity (if verbalized by the patient): Female Spiritual care concerns: No Exam Day of Procedure 12/19/20 06:22 Patient weight: obese Airway: Mallampati scale class II Neurological: alert and oriented
--- NOTE | 2020-12-19 06:24 | PM.OBPNLAB ---
Pain Control Date/time seen: 12/19/20 06:24 Pain control: tolerating well Comments: Cervidil removed @ 0530 Pelvic Exam Dilation (cm): 1 Effacement (%): 50 station: -3 Amniotic membrane status: Intact Contractions Monitor mode: External Contraction frequency: 5 Contraction pattern: Regular Status status: Category l Comments: 140's/ mod [place]/ + accels/ no decels Assessment and Plan Pitocin rate (mU/min): 2 Assessment: induction ongoing Plan: continuous present management Comments: - Latent phase, induction on going; cervix remains 1/50/-3, however, softer and in mid position - Will start pitocin augmentation; plan for rupture of membranes after more regular contractions noted - GBS negative - Fasting BS 95 - BP's in normal to mild range; pt asymptomatic - Continuous monitoring, FHT reassuring
[2020-12-19 07:10] LABS: Rapid Plasma Reagin Non-Reactive (NonReactive)
[2020-12-19 08:35] LABS: Glucose Point of Care 79 (65-105)
--- NOTE | 2020-12-19 12:36 | PM.OBPNLAB ---
Pain Control Date/time seen: 12/19/20 12:36 Pain control: tolerating well Pelvic Exam Dilation (cm): 1 (.5) Effacement (%): 70 station: -2 Amniotic membrane status: Ruptured (AROM, clear 1230) Contractions Monitor mode: External Contraction frequency: 2 Contraction pattern: Regular Status status: Category l Assessment and Plan Pitocin rate (mU/min): 20 Assessment: induction ongoing Plan: continuous present management
[2020-12-19 12:41] LABS: Glucose Point of Care 82 (65-105)
[2020-12-19] MEDS: fentaNYL CITRATE INJ (*CRX) 100 MCG/2 ML VIAL 50 MCG IV PUSH (13:26)
[2020-12-19] MEDS: LACTATED RINGERS 1,000 ML 999 ML IV CONT (13:28)
--- NOTE | 2020-12-19 14:06 | WPDANESEPPF ---
Anes - Initial Pre Proc Eval Date/Time: 12/19/20 14:06 Surgeon: Codey Ragland MD Pre Op Diagnosis: Induction of Labor Patient Data Age: 30 Gender: F Height: 1.63 m Weight: 99 kg Last Vital Signs Temp 37.3 C 12/19/20 12:32 Pulse 99 12/19/20 14:06 BP 145/99 H 12/19/20 14:06 Pulse Ox 95 12/19/20 14:06 Allergies Allergy/AdvReac Type Severity Reaction Status Date / Time No Known Allergies Allergy Verified 12/18/20 16:46 Home Medications Medication Instructions Recorded Confirmed Type Advantage with Iron 12/18/20 History metformin 500 mg PO DAILY 12/18/20 12/18/20 History Laboratory Tests 12/18/20 12/18/20 12/18/20 17:04 17:04 17:04 WBC 12.4 K/mm3 H K/mm3 (4.5-10.0) RBC 3.76 M/mm3 L M/mm3 (4.2-5.4) Hgb 11.2 g/dL L g/dL (12.0-15.0) Hct 34.7 % L % (37.0-47.0) MCV 92.3 fl fl (80-100) MCH 29.8 pg pg (26-34) MCHC 32.3 g/dl g/dl (32-36) RDW 16.8 % H % (11.5-14.5) Plt Count 237 k/mm3 k/mm3 (150-375) MPV 9.7 fl fl (7.4-10.4) Immature Gran % (Auto) 1.4 % H % (0-0.5) Neut % (Auto) 79.4 % H % (45.5-73.1) Lymph % (Auto) 13.0 % L % (18.3-44.2) Clarke % (Auto) 5.8 % % (2.6-8.5) Eos % (Auto) 0.2 % % (0-4.4) Baso % (Auto) 0.2 % % (0.2-1.2) Lymph # (Auto) 1.62 K/mm3 K/mm3 (0.9-3.2) Clarke # (Auto) 0.7 K/mm3 H K/mm3 (0.1-0.6) Eos # (Auto) 0.0 K/mm3 K/mm3 (0-0.3) Baso # (Auto) 0.0 K/mm3 K/mm3 (0.0-0.1) Abs Immat Gran (auto) 0.18 K/mm3 H K/mm3 (0.00-0.031) Absolute Neuts (auto) 9.9 K/mm3 H K/mm3 (1.3-6.7) Absolute Nucleated RBC 0.0 K/mm3 K/mm3 (0.0-0.012) Nucleated RBC % 0.0 % % (0.0-0.2) POC Capillary Glucose RPR Non-reactive (NonReactive) Blood Type A Positive Antibody Screen Negative 12/18/20 12/19/20 12/19/20 22:10 04:49 08:30 WBC RBC Hgb Hct MCV MCH MCHC RDW Plt Count MPV Immature Gran % (Auto) Neut % (Auto) Lymph % (Auto) Clarke % (Auto) Eos % (Auto) Baso % (Auto) Lymph # (Auto) Clarke # (Auto) Eos # (Auto) Baso # (Auto) Abs Immat Gran (auto) Absolute Neuts (auto) Absolute Nucleated RBC Nucleated RBC % POC Capillary Glucose 104 mg/dl mg/dl 95 mg/dl mg/dl 79 mg/dl mg/dl (65-105) (65-105) (65-105) RPR Blood Type Antibody Screen 12/19/20 12:38 WBC RBC Hgb Hct MCV MCH MCHC RDW Plt Count MPV Immature Gran % (Auto) Neut % (Auto) Lymph % (Auto) Clarke % (Auto) Eos % (Auto) Baso % (Auto) Lymph # (Auto) Clarke # (Auto) Eos # (Auto) Baso # (Auto) Abs Immat Gran (auto) Absolute Neuts (auto) Absolute Nucleated RBC Nucleated RBC % POC Capillary Glucose 82 mg/dl mg/dl (65-105) RPR Blood Type Antibody Screen Patient hx anesthesia problems: none Family hx anesthesia problems: none PMFSH Past Medical History Medical History Anxiety Depression Gestational diabetes Migraine Obesity Preeclampsia Family History Family History Father Diabetes mellitus Malignant neoplasm of prostate Pacemaker FHx: premature coronary heart disease, Onset Age: 17 [place] Social History Social History Smo
[2020-12-19 16:28] LABS: Glucose Point of Care 61 (65-105)
[2020-12-19 17:58] LABS: Glucose Point of Care 83 (65-105)
[2020-12-19] MEDS: ACETAMINOPHEN 500 MG TABLET 1000 MG PO (19:16)
[2020-12-19 20:33] LABS: Glucose Point of Care 73 (65-105)
[2020-12-19] MEDS: miSOPROStol 200 MCG TABLET 1000 MCG RECTAL (20:48)
--- NOTE | 2020-12-19 21:05 | P.PCNOB_ITS ---
OB - Delivery Note Procedure Delivery date: 12/19/20 events: Gestational Diabetes, Induced HTN and Labor Induction Induction method: per cervidil protocol Delivery augmentation: rupture of membranes and pitocin Delivery monitor: external FHT and external uterine Route of delivery: Laceration Description: Perineal - 1st Degree Delivery repair: vicryl Specimen: No Quantitative Blood Loss (ml): 450 Anesthesia type: Epidural Disposition: floor Narrative: Patient was found to be completely dilated with a strong desire to push. With good maternal effort the head was delivered over intact perineum after approximately 2 contractions. A nuchal cord was palpated but loose and delivered through. The shoulders and body delivered without complications. The infant had spontaneous cry and [place] [facility] [place] Delayed cord clamping was performed. The umbilical cord was then clamped and cut. A segment of the cord was collected for cord gases. The remaining cord blood was collected for typing. With Pitocin running and gentle downward traction on the umbilical cord the placenta delivered without complications. Brisk bleeding was noted and bimanual massage was performed which showed lower uterine atony. With massage uterine tone was better. The cervix, vagina, perineum were examined and a small first-degree perineal laceration was noted to be bleeding. A [id number] using 2 0 Vicryl was placed and good hemostasis was noted. Brisk bleeding was once again noted and bimanual massage was performed where lower uterine segment atony was once again noted, but resolved with massage. Misoprostol 800 mcg was placed rectally. My gloves were changed and bimanual massage was continued until the uterus was noted to be firm. Good hemostasis was noted. Sponge, lap, instrument, needle counts were correct at the end of the procedure. The fundus continued to be firm with minimal bleeding. Mom and baby were left in a stable condition in the birthing suite. [place] Baby Date of : 12/19/20 Time of : 20:38 Weeks of gestation at delivery: 37 Infant gender: Male Weight (pounds): 7 Weight (ounces): 2 presentation: vertex position: Left Occiput Anterior Placenta delivery description: Expressed cord vessel description: 3 Vessels, Nuchal Cord and Loose score one minute: 9 score five minutes: 9
[2020-12-19] MEDS: OXYTOCIN 30 UNITS/NS 500 ML 30 UNITS/500 ML BAG 125 UNITS IV CONT (21:07)
[2020-12-19] MEDS: WITCH HAZEL 40 PADS 1 PAD TOPICAL (23:02)
[2020-12-19] MEDS: BENZOCAINE 20% AER SPR (*SP) 56 GM CAN 1 SPRAY TOPICAL (23:02)
[2020-12-19] MEDS: IBUPROFEN 600 MG TABLET PO (23:04)
--- NOTE | 2020-12-19 23:33 | OBPPTRN ---
Patient transferred to post room #287 via wheelchair with in crib. Support person present. Oriented to unit, room, information board, rooming in, admission packet and security measures. Patient verbalizes understanding.
[2020-12-20 06:14] LABS: Hematocrit 28.6 % (37.0-47.0); Hemoglobin 9.6 g/dL (12.0-15.0); Mean Corpuscular HGB Conc 33.6 g/dl (32-36); Mean Corpuscular Hemoglobin 30.2 pg (26-34); Mean Corpuscular Volume 89.9 fl (80-100); Mean Platelet Volume 10.6 fl (7.4-10.4); Platelet Count Result 294 k/mm3 (150-375); Red Blood Count 3.18 M/mm3 (4.2-5.4); Red Cell Distribution Width 16.6 % (11.5-14.5)
[2020-12-20 08:00] VITALS: BP 141/87; PULSE 89; RESP 18; TEMP 36.6; O2SAT 99
[2020-12-20] MEDS: DOCUSATE SODIUM 100 MG CAPSULE PO ×2 (08:27→16:53)
[2020-12-20] MEDS: IBUPROFEN 600 MG TABLET PO ×2 (08:27→16:53)
[2020-12-20] MEDS: POLYSACCHARIDE IRON COMPLEX 150 MG CAPSULE PO ×2 (08:30→16:53)
[2020-12-20] MEDS: WITCH HAZEL 40 PADS 1 PAD TOPICAL (16:53)
[2020-12-20] MEDS: BENZOCAINE 20% AER SPR (*SP) 56 GM CAN 1 SPRAY TOPICAL (16:53)
[2020-12-20] MEDS: FLUoxetine HCL 20 MG CAPSULE PO (16:54)
--- NOTE | 2020-12-20 17:00 | PC.NURSE ---
Patient viewed the discharge video Mother & Baby Care, The First Two Weeks . Patient was given the opportunity and encouraged to ask questions. Patient verbalized understanding of information shared and has been given the mother/baby guide for home reference.
[2020-12-20 19:45] VITALS: BP 137/86; PULSE 99; RESP 18; TEMP 36.7
[2020-12-21] MEDS: DOCUSATE SODIUM 100 MG CAPSULE PO (07:56)
[2020-12-21] MEDS: IBUPROFEN 600 MG TABLET PO (07:56)
[2020-12-21] MEDS: POLYSACCHARIDE IRON COMPLEX 150 MG CAPSULE PO (07:56)
[2020-12-21] MEDS: FLUoxetine HCL 20 MG CAPSULE PO (07:57)
[2020-12-21 08:00] VITALS: BP 130/77; PULSE 71; RESP 18; TEMP 36.6; O2SAT 99
--- NOTE | 2020-12-21 09:30 | PC.NURSE ---
Self care and infant care discharge instructions given including follow up visit date and time. Mother verbalized understanding. No questions or concerns voiced. Very pleasant and cooperative.
--- NOTE | 2020-12-23 10:13 | PM.OBDSVD ---
DS: Admitting Diagnosis Admitting Diagnosis Admitting Diagnosis: induction of labor DS: Discharge Diagnosis Discharge Diagnosis (1) Depression: Code(s): F32.9 - Major depressive disorder, single episode, unspecified Status: Acute (2) Preeclampsia: Qualifiers: Trimester: third trimester Qualified Code(s): O14.93 - Unspecified pre-eclampsia, third trimester Code(s): O14.90 - Unspecified pre-eclampsia, unspecified trimester Status: Acute (3) Gestational diabetes: Qualifiers: Gestational diabetes mellitus control: oral hypoglycemic-controlled Trimester: third trimester Qualified Code(s): O24.415 - Gestational diabetes mellitus in , controlled by oral hypoglycemic drugs Code(s): O24.419 - Gestational diabetes mellitus in , unspecified control Status: Acute (4) Anxiety: Code(s): F41.9 - Anxiety disorder, unspecified Status: Acute (5) Migraine: Code(s): G43.909 - Migraine, unspecified, not intractable, without status migrainosus Status: Acute OB - DS: Summary OB Procedures : NST, PIH Mgmt and Ultrasound OB Procedures Intrapartum: Spontaneous Vag Delivery OB Procedures: : None Peripartum Data Infant Delivery Method: Natural Vaginal Laceration Description: Perineal - 1st Degree complications: none 1: Gender: Male Disposition of : home Status at Discharge Functional status at discharge: independent ambulation Overall status at discharge: patient is back to baseline Time Spent with Patient Time attestation: Total time spent providing and/or coordinating discharge services: Time spent: Less than 30 minutes Exam Const: General: cooperative, healthy appearing, comfortable and no acute distress Resp: Effort & Inspection: normal respiratory effort and able to speak in complete sentences Auscultation: clear to auscultation bilaterally Cardio: Rate: regular rate GI: Inspection: non-distended GI Palp: No abdominal tenderness and Yes Soft to palpation Auscultation: normal bowel sounds : Other: fundus firm at umbilicus Skin: General skin exam: normal color Neuro: General: patient oriented x3 Extrem: General: normal to inspection Psych: Appearance: grossly normal Affect: normal affect Attitude: cooperative DS: Data Data Completed and Pending Pending studies at discharge: Pending at discharge 12/19/20 20:43 Surgical [PTH] Routine Discharge Plan Discharge Attending physician on discharge: Amelia Graham Discharging Clinician: Amelia Graham Anticipated Discharge Date/Time: 12/21/20 14:00 Patient Disposition: Home, Self-Care Activity: pelvic rest Diet: regular Discharge Instructions: Education: Mom and Baby Guide Given to: Mother Follow-Up: Call your delivering provider's office for an appointment to be seen in: 2 Weeks Mom and baby should come to the [facility] for the follow-up appointment. Appointment Date/Time: Tuesday, December 22, 2020 at 11:00 am What to expect at your follow-up visit: Blood Pressure Check Physical Assessment Call [phone] if you are unable to keep your appointment time. BREAST CARE: * Wear a snug supportive bra. Bottle Feeding: * May apply ice packs EPISIOTOMY/PERINEAL CARE: * Until bleeding stops, use your noemí bottle after urinating * Change your pad frequently throughout the day * You may take sitz baths several times a day (fill your bathtub with warm water and soak for 20 minutes.) Do NOT bathe in the water * No tub baths until seen by your physician - You may shower ACTIVITY: * Rest as much as possible. * Do not exercise or lift anything heavier than your baby (such as laundry or other children.) * Avoid stairs or driving as much as possible. * Do not put anything into the vagina. No douching, tampons, or sexual activity unti
== END 2020-12-21 10:50 | disposition home or self-care (01) | DRG 560 ==
LOC: ANHLDR 12-19 12:56 → ANHOB2 12-20 09:45 → ANHLDR 12-23 11:00 → ANHOB2 12-23 11:00
PROVIDERS: Obstetrics & Gynecology; Admitting Provider Obstetrics & Gynecology; Visit Provider Obstetrics & Gynecology
DX: O24.425 Gestational diabetes mellitus in childbirth, controlled by oral hypoglycemic drugs (principal); O14.04 Mild to moderate pre-eclampsia, complicating childbirth; O99.02 Anemia complicating childbirth; D64.9 Anemia, unspecified; O13.4 Gestational [pregnancy-induced] hypertension without significant proteinuria, complicating childbirth; O70.0 First degree perineal laceration during delivery; O69.81X0 Labor and delivery complicated by cord around neck, without compression, not applicable or unspecified; Z3A.37 37 weeks gestation of pregnancy; Z37.0 Single live birth
CPT/HCPCS: 36415; 82948; 85025; 85027; 86592; 86850; 86900; 86901; 88307; A9270; J2590; J2795; J3010; J7120

== ENCOUNTER 2021-04-22 15:08 | Outpatient (CLI) | payer OTHER, SELFPAY ==
--- NOTE | ~2021-04-22 | XR_ITS ---
XR wrist RT min 3V DATE: 04/22/2021 15:29 INDICATION: Right lateral wrist pain for 2 weeks TECHNIQUE: 4 views COMPARISON: None FINDINGS: No fracture or dislocation, periosteal reaction or bone destruction, joint space narrowing, erosive change or chondrocalcinosis. IMPRESSION: Negative Reviewed, dictated and finalized at location A. IMPRESSION: Negative
== END 2021-04-22 15:09 | disposition home or self-care (01) ==
LOC: CHSIMG 15:10
PROVIDERS: PCP Physician Assistant; Visit Provider Family Medicine
DX: M25.531 Pain in right wrist (principal)
CPT/HCPCS: 73110

== ENCOUNTER 2021-06-30 10:13 | Outpatient (CLI) | payer OTHER, SELFPAY ==
--- NOTE | 2021-06-30 10:20 | NEURO_ITS ---
PATIENT NUMBER: [id number] IMPRESSION: # Complains of wrist pain # evolving left Carpal Tunnel Syndrome # Not diagnostic of right Carpal Tunnel Syndrome # Bilateral ulnar neuropathy.left localizing at the elbow # Right nonlocalizing # Needle exam not ordered Nerve Conduction Studies Anti Sensory Summary Table Stim Site NR Peak (ms) P-T Amp (?V) Site1 Site2 Delta-P (ms) Dist (cm) Lei (m/s) Left Median Anti Sensory (2-3nd Digit) Wrist 2.8 102.2 Wrist 2-3nd Digit 2.8 14.0 50 Wrist 2.9 89.5 Wrist 2-3nd Digit 2.8 14.0 50 Right Median Anti Sensory (2-3nd Digit) Wrist 2.5 58.5 Wrist 2-3nd Digit 2.5 14.0 56 Wrist 2.5 71.9 Wrist 2-3nd Digit 2.5 14.0 56 Left Radial Anti Sensory (Base 1st Digit) Wrist 1.8 54.9 Wrist Base 1st Digit 1.8 0.0 Right Radial Anti Sensory (Base 1st Digit) Wrist 2.3 32.6 Wrist Base 1st Digit 2.3 0.0 Left Ulnar Anti Sensory (5th Digit) Wrist 2.4 88.4 Wrist 5th Digit 2.4 14.0 58 Right Ulnar Anti Sensory (5th Digit) Wrist 2.3 52.1 Wrist 5th Digit 2.3 14.0 61 Motor Summary Table Stim Site NR Onset (ms) O-P Amp (mV) Site1 Site2 Delta-0 (ms) Dist (cm) Lei (m/s) Left Median Motor (Abd Poll Brev) Wrist 3.3 3.2 Elbow Wrist 4.1 27.0 66 Elbow 7.4 2.3 Right Median Motor (Abd Poll Brev) Wrist 3.1 3.0 Elbow Wrist 3.7 28.0 76 Elbow 6.8 2.5 Left Ulnar Motor (Abd Dig Minimi) Wrist 2.1 6.6 A Elbow Wrist 4.2 26.0 62 A Elbow 6.3 6.1 B Elbow Wrist 3.5 24.0 69 B Elbow 5.6 3.0 Right Ulnar Motor (Abd Dig Minimi) Wrist 2.7 6.0 A Elbow Wrist 5.0 26.0 52 A Elbow 7.7 5.0 B Elbow Wrist 3.9 21.0 54 B Elbow 6.6 5.9 F Wave Studies NR F-Lat (ms) L-R F-Lat (ms) Left Median (Mrkrs) (Abd Poll Brev) 25.76 0.00 Right Median (Mrkrs) (Abd Poll Brev) 25.76 0.00 Left Ulnar (Mrkrs) (Abd Dig Min) 26.09 0.94 Right Ulnar (Mrkrs) (Abd Dig Min) 25.16 0.94 MTDD
== END 2021-06-30 10:14 | disposition home or self-care (01) ==
PROVIDERS: PCP Physician Assistant; Visit Provider Nurse Practitioner Psychiatric/Mental Health
DX: R20.2 Paresthesia of skin (principal); G56.02 Carpal tunnel syndrome, left upper limb; G56.23 Lesion of ulnar nerve, bilateral upper limbs
CPT/HCPCS: 95911

== ENCOUNTER 2022-07-07 12:31 | Emergency (ER) | payer OTHER, SELFPAY ==
[2022-07-07 12:38] VITALS: BP 137/98; PULSE 101; RESP 14; TEMP 36.5; O2SAT 100
--- NOTE | 2022-07-07 12:45 | ED.URI ---
HPI - URI/Sore Throat General Chief Complaint: Upper Respiratory Infection Stated Complaint: sore throat ear pain sinus pressure Source: patient and RN notes reviewed Mode of arrival: ambulatory Limitations: no limitations History of Present Illness HPI Narrative: 32 y/o female presented for c/o sore throat and pain into both ears for 3 days. Reports fatigue, sinus congestion, headache.Denies fever, sob, cough, vomiting. Reports son has also been sick, not tested. Not taking anything for symptoms. MD elicited complaint: cough Related Data Home Medications Medication Instructions Recorded Confirmed amlodipine 10 mg tablet 10 mg PO DAILY 07/07/22 07/07/22 bupropion HCl 150 mg 24 hr tablet, 150 mg PO QAM 07/07/22 07/07/22 extended release fluoxetine 20 mg tablet 40 mg PO DAILY 07/07/22 07/07/22 Allergies Allergy/AdvReac Type Severity Reaction Status Date / Time No Known Allergies Allergy Verified 07/07/22 12:45 Review of Systems Review of Systems: CONSTITUTIONAL: Endorses malaise, denies chills, sweats, fever EYES: Denies visual changes, redness, or discharge ENT: Reports rhinorrhea, congestion, sinus pain, otalgia, sore throat CARDIOVASCULAR: Denies chest pain, palpitations, edema RESPIRATORY: Reports post nasal drainage. Denies dyspnea GASTROINTESTINAL: Denies abdominal pain, nausea, vomiting, diarrhea SKIN: Denies rash or itching MUSCULOSKELETAL: Endorses myalgia PMFSH Past Medical History Medical History Anxiety Depression Gestational diabetes Migraine Obesity Preeclampsia Family History Family History Father Diabetes mellitus Malignant neoplasm of prostate Pacemaker FHx: premature coronary heart disease, Onset Age: 17 [place] Social History Social History Smoking status: Never smoker Gender identity (if verbalized by the patient): Female Spiritual care concerns: No Exam Narrative: GENERAL: Ill-appearing, nontoxic EYES: conjunctivae clear ENT: Mucous membranes moist. TM pearly garcia with dull light reflex bilaterally; no tragal tenderness. Oropharynx erythematous without lesions or exudate, no drooling, no hoarseness, no trismus, uvula midline. NECK: Supple. No lymphadenopathy CHEST: Clear to auscultation, breath sounds equal. HEART: Regular rate and rhythm. No murmur heard. SKIN: Warm, dry, no rash. NEURO: Alert and oriented x3. Course Course Emergency Course: Patient is aware of diagnosis, understands and agrees to treatment plan. Anticipatory guidance given. Patient agrees to follow-up as directed and is aware of reasons to seek care at the emergency department. Portions of this record may have been created with voice recognition software Level of Care: Express Care Visit Vital Signs Vital signs: Vital Signs Temperature 97.7 F 07/07/22 12:38 Pulse Rate 101 H 07/07/22 12:38 Respiratory Rate 14 07/07/22 12:38 Blood Pressure 137/98 H 07/07/22 12:38 Pulse Oximetry 100 07/07/22 12:38 Oxygen Delivery Room Air 07/07/22 12:38 Temperature 97.7 F 07/07/22 12:47 Pulse Rate 101 H 07/07/22 12:47 Respiratory Rate 14 07/07/22 12:47 Blood Pressure 137/98 H 07/07/22 12:47 Pulse Oximetry 100 07/07/22 12:47 Oxygen Delivery Room Air 07/07/22 12:47 reviewed MDM - URI/Sore Throat MDM Narrative Medical decision making narrative: strep negative. covid neg, reviewed with pt. Advised supportive measures and signs/symptoms to go to the ER. Pt is appropriate for outpt treatment and f/u. Differential Diagnosis Differential diagnosis: Likely upper respiratory infection, sinusitis and viral infection Lab Data Labs: Lab Results 07/07/22 Range/Units 13:00 POC SARS CoV-2 Ag Negative (Negative) Strep Screen Presumptive Negative
[2022-07-07 12:47] VITALS: BP 137/98; PULSE 101; RESP 14; TEMP 36.5; O2SAT 100
== END 2022-07-07 13:24 | disposition home or self-care (01) ==
PROVIDERS: Emergency Provider Nurse Practitioner Family
DX: J06.9 Acute upper respiratory infection, unspecified (principal); Z20.822 Contact with and (suspected) exposure to COVID-19; F41.9 Anxiety disorder, unspecified; F32.A Depression, unspecified; E66.9 Obesity, unspecified; Z68.32 Body mass index [BMI] 32.0-32.9, adult
CPT/HCPCS: 87081; 87426; 87880; 99213; C9803; G0463

== ENCOUNTER 2023-01-10 16:11 | Emergency (ER) | payer OTHER, SELFPAY ==
[2023-01-10 16:16] VITALS: BP 151/96; PULSE 95; RESP 20; TEMP 37.5; O2SAT 98
--- NOTE | 2023-01-10 16:58 | ED.DENTAL ---
HPI - Dental/Oral General Chief complaint: Dental/Oral Stated complaint: Toothache Time Seen by Provider: 01/10/23 16:58 Source: patient Mode of arrival: ambulatory History of Present Illness HPI Narrative: 32-year-old female presented for complaint of left upper dental pain for about 4 days. She endorses a foul taste in her mouth. She also endorses a history of poor dentition and states the tooth has been broken for a long time. She denies nausea, vomiting, diarrhea, fevers or chills. She is taking a Tylenol and ibuprofen for pain. She does not have a dentist. MD Complaint: tooth pain Related Data Home Medications Medication Instructions Recorded Confirmed amlodipine 10 mg tablet 10 mg PO DAILY 07/07/22 01/10/23 fluoxetine 20 mg tablet 40 mg PO DAILY 07/07/22 01/10/23 Allergies Allergy/AdvReac Type Severity Reaction Status Date / Time No Known Allergies Allergy Verified 01/10/23 16:25 Review of Systems Review of Systems: CONSTITUTIONAL: Denies body aches, fever, chills ENT: Denies rhinorrhea, congestion, sore throat, or otalgia. Reports dental pain CARDIOVASCULAR: Denies chest pain, palpitations RESPIRATORY: Denies cough or dyspnea. SKIN: Denies rash, itching, or wounds. MUSCULOSKELETAL: Denies myalgia. NEUROLOGIC: Denies headache, numbness, tingling, or weakness. [facility] Past Medical History Medical History Anxiety Depression Gestational diabetes Migraine Obesity Preeclampsia Family History Family History Father Diabetes mellitus Malignant neoplasm of prostate Pacemaker FHx: premature coronary heart disease, Onset Age: 17 [place] Social History Social History Smoking status: Never smoker Gender identity (if verbalized by the patient): Female Spiritual care concerns: No Comments At time of signature, I have reviewed and agree with nursing past medical, surgical, social and family history unless otherwise noted. Please see nursing chart for further information. There is no relevant family history pertinent to the presenting complaint Exam Narrative: GENERAL: Appears in pain; no acute distress. HEAD: Normocephalic, atraumatic. EYES: EOMI. No redness or drainage. Conjunctivae normal. ENT: Dental pain location of #14--15, poor dentition and broken teeth throughout, moderate gum swelling and tenderness to site without active drainage; Mucous membranes pink and moist. TMs normal bilaterally. Throat normal. Uvula midline. NECK: Normal AROM. No lymphadenopathy. CHEST: No respiratory distress. Clear to auscultation. HEART: Regular rate and rhythm. No murmur appreciated. SKIN: Warm, dry, no rash. Normal skin turgor. NEURO: No focal deficits. Alert and oriented x3. Gait steady. Course Course Emergency Course: Patient is aware of diagnosis, understands and agrees to treatment plan. Anticipatory guidance given. Patient agrees to follow-up as directed and is aware of reasons to seek care at the emergency department. Portions of this record may have been created with voice recognition software Level of Care: Express Care Visit Vital Signs Vital signs: Vital Signs Temperature 99.5 F 01/10/23 16:16 Pulse Rate 95 01/10/23 16:16 Respiratory Rate 20 01/10/23 16:16 Blood Pressure 151/96 H 01/10/23 16:16 Pulse Oximetry 98 01/10/23 16:16 Oxygen Delivery Room Air 01/10/23 16:16 Temperature 99.5 F 01/10/23 16:16 Pulse Rate 95 01/10/23 16:16 Respiratory Rate 20 01/10/23 16:16 Blood Pressure 151/96 H 01/10/23 16:16 Pulse Oximetry 98 01/10/23 16:16 Oxygen Delivery Room Air 01/10/23 16:16 MDM - Dental/Oral MDM Narrative Medical decision making narrative: Patients pain and complaint coupled with physical findings are consistent with dental abscess. There are no focal sig
== END 2023-01-10 17:11 | disposition home or self-care (01) ==
PROVIDERS: Emergency Provider Nurse Practitioner Family
DX: K04.7 Periapical abscess without sinus (principal)
CPT/HCPCS: 99213; G0463

== ENCOUNTER 2023-09-28 10:56 | Emergency (ER) | payer OTHER, SELFPAY ==
--- NOTE | 2023-09-28 10:58 | ED.URI ---
HPI - URI/Sore Throat General Chief Complaint: Upper Respiratory Infection Stated Complaint: cough/congestion Time Seen by Provider: 09/28/23 10:57 Source: patient Mode of arrival: ambulatory Limitations: no limitations History of Present Illness HPI Narrative: Lalita is a 33-year-old female patient presenting to the clinic today with complaints of cough, bilateral ear pain, and congestion x3 days. She reports no fever or chills MD elicited complaint: sore throat and nasal congestion Related Data Home Medications Medication Instructions Recorded Confirmed fluoxetine 20 mg tablet 20 mg PO DAILY 07/07/22 09/28/23 Allergies Allergy/AdvReac Type Severity Reaction Status Date / Time No Known Allergies Allergy Verified 09/28/23 11:14 Review of Systems Review of Systems: Pertinent positives per HPI. Patient denies any fever, chills, rash, headache, visual changes, dizziness, shortness of breath, chest pain, palpitations, nausea, vomiting, diarrhea, constipation, abdominal pain, or any urinary issues. PMFSH Past Medical History Medical History Anxiety Depression Gestational diabetes Migraine Obesity Preeclampsia Family History Family History Father Diabetes mellitus Malignant neoplasm of prostate Pacemaker FHx: premature coronary heart disease, Onset Age: 17 [place] Social History Social History Smoking status: Never smoker Gender identity (if verbalized by the patient): Female Spiritual care concerns: No Comments At the time of my signature, I reviewed and agree with the nursing past medical, surgical, social, and family history. There is no relevant family history pertinent to the patient complaint. Exam Narrative: General: Well-developed, well nourished, in no apparent distress Head: Normocephalic, atraumatic Eyes: Pupils equally round and reactive to light bilaterally, EOM intact, sclera and conjunctive clear, no discharge, lids normal Ears: TMs intact and congested, ear canals clear, no drainage, grossly hearing normal. Nose: Nares patent, clear nasal discharge, no inflammation, no sinus tenderness. Mouth: Oral pharynx red without lesions or masses, good dentition, MMM. Neck: Supple, trachea midline, no enlargement of anterior or posterior cervical nodes, no thyroid masses or goiter palpable. Cardio: Regular rate and rhythm, s1 and s2 normal, no murmur appreciated. Resp: Clear to auscultation bilaterally, no rhonchi, rales, wheezing or rubs Course Course Emergency Course: Portions of this record may have been created with voice recognition software. Level of Care: Express Care Visit Vital Signs Vital signs: Vital signs reviewed MDM - URI/Sore Throat MDM Narrative Medical decision making narrative: At the time of visit patient is resting comfortably on the exam table. Patient is nontoxic appearing. Strep test was negative in the clinic today. I suspect patient has URI. Supportive measures were discussed with the patient she voiced understanding discharge instructions agrees to treatment plan. Return precautions were reviewed Differential Diagnosis Differential diagnosis: Likely upper respiratory infection, otitis media, sinusitis, viral infection, bronchitis, influenza, pharyngitis and other (COVID) Discharge Plan Discharge Clinical Impression: Acute upper respiratory infection Patient Disposition: Home, Self-Care Condition: Stable Instructions: Antibiotic Form, Upper Respiratory Infection (ED) Additional Instructions: Strep test was negative in the clinic today. We will send for culture if this comes back positive we will contact you in place you on antibiotics at that time. May take Coricidin HBP for cold/ flu symptoms Increase fluids and stay well hydrated Tylenol/mot
[2023-09-28 11:07] VITALS: BP 182/115; PULSE 82; RESP 16; TEMP 36.4; O2SAT 97
== END 2023-09-28 11:32 | disposition home or self-care (01) ==
PROVIDERS: Emergency Provider Nurse Practitioner Family
DX: J06.9 Acute upper respiratory infection, unspecified (principal); Z79.899 Other long term (current) drug therapy
CPT/HCPCS: 87081; 87880; 99213; G0463

== ENCOUNTER 2025-03-05 10:39 | Emergency (ER) | payer SELFPAY ==
[2025-03-05 10:49] VITALS: BP 138/99; PULSE 112; RESP 20; TEMP 36.8; O2SAT 99
--- NOTE | 2025-03-05 11:13 | ED_ITS ---
HPI - Dental/Oral General Chief complaint: Dental/Oral Stated complaint: Tooth Pain Time Seen by Provider: 03/05/25 11:13 Source: patient Mode of arrival: ambulatory History of Present Illness HPI Narrative: 34-year-old female presented for complaint of left lower dental pain and swelling to a broken tooth. Onset 2 days. Endorses pus drained from the site this morning. Has taken ibuprofen and applied Orajel. Reports poor dentition a nd says the tooth has been broken for a long time. Does not have a dentist. Denies nausea, vomiting, fevers or chills. MD Complaint: tooth pain Related Data Home Medications ?Medication ?Instructions ?Recorded ?Confirmed ?Last Taken ?Type fluoxetine 20 mg tablet 20 mg PO DAILY 07/07/22 03/05/25 Unknown History Allergies Allergy/AdvReac Type Severity Reaction Status Date / Time No Known Allergies Allergy Verified 03/05/25 10:49 Review of Systems Review of Systems: CONSTITUTIONAL: Denies body aches, fever, chills ENT: Denies rhinorrhea, congestion, sore throat, or otalgia. Reports dental pain CARDIOVASCULAR: Denies chest pain, palpitations RESPIRATORY: Denies cough or dyspnea. SKIN: Denies rash, itching, or wounds. MUSCULOSKELETAL: Denies myalgia. NEUROLOGIC: Denies headache, numbness, tingling, or weakness. [facility] Past Medical History Medical History Obesity Gestational diabetes Preeclampsia Anxiety Migraine Depression Family History Family History Father Diabetes mellitus Malignant neoplasm of prostate Pacemaker FHx: premature coronary heart disease, Onset Age: 17 [place] Social History Social History Smoking status: Never smoker Gender identity (if verbalized by the patient): Female Spiritual care concerns: No Comments At time of signature, I have reviewed and agree with nursing past medical, surgical, social and family history unless otherwise noted. Please see nursing chart for further information. There is no relevant family history pertinent to the presenting complaint Exam Narrative: GENERAL: Appears in pain; no acute distress. HEAD: Normocephalic, atraumatic. EYES: EOMI. No redness or drainage. Conjunctivae normal. ENT: Dental pain location of #13, erythema and swelling noted, abscess noted appears to have drained recently. Mild associated facial swelling. Swelling to gums surrounding broken teeth #14, 15. Mucous membranes pink and moist. Throat normal.no dysphagia, odynophagia, dysphonia, or dyspnea. No uvular deviation or soft palate edema.. NECK: Normal AROM. No lymphadenopathy. no induration below mandible, no neck pain CHEST: No respiratory distress. Clear to auscultation. HEART: Regular rate and rhythm. SKIN: Warm, dry, no rash. Normal skin turgor. NEURO: Alert and oriented x3. Gait steady. Course Course Emergency Course: Patient is aware of diagnosis, understands and agrees to treatment plan. Anticipatory guidance given. Patient agrees to follow-up as directed and is aware of reasons to seek care at the emergency department. Portions of this record may have been created with voice recognition software Level of Care: Express Care Visit Vital Signs Vital signs: Vital Signs Temperature 98.3 F 03/05/25 10:49 Pulse Rate 112 H 03/05/25 10:49 Respiratory Rate 20 03/05/25 10:49 Blood Pressure 138/99 H 03/05/25 10:49 Pulse Oximetry 99 03/05/25 10:49 Oxygen Delivery Room Air 03/05/25 10:49 Temperature 98.3 F 03/05/25 10:49 Pulse Rate 112 H 03/05/25 10:49 Respiratory Rate 20 03/05/25 10:49 Blood Pressure 138/99 H 03/05/25 10:49 Pulse Oximetry 99 03/05/25 10:49 Oxygen Delivery Room Air 03/05/25 10:49 MDM - Dental/Oral MDM Narrative Medical decision making narrative: Patients pain and complaint coupled with physical findings are consistent with dental abscess. There are no focal signs of space occupying lesions that are compromising to the airway; Patient is non-toxic appearing. The floor of the mouth is soft with no signs of Onesimo's Angina. Patient is without trismus or drooling and able to swallow secretions. Patient is felt appropriate for discharge home with dental follow up. Differential Diagnosis Differential diagnosis: Likely gingival abscess, dental caries, toothache, dental abscess, fracture of tooth and aphthous ulcer Discharge Plan Discharge Clinical Impression: Dental abscess Patient Disposition: Home Condition: Stable Instructions: Antibiotic Form, Dental Abscess (ED) Additional Instructions: Take antibiotic as directed May apply heat or ice to the face Gentle brushing and flossing. Rinse mouth with warm salt water at least 2 times a day. Alternate Tylenol and ibuprofen as needed for pain Follow-up with the dentist as soon as possible--see the list provided Go to the ER for any worsening symptoms or concerns Patient Language: Hungarian Prescriptions: New ibuprofen 800 mg tablet 800 mg PO TID PRN (Reason: pain) Qty: 15 0RF lidocaine HCl [Lidocaine Viscous] 2 % solution 1 applic mucous membrane TID PRN (Reason: pain) Qty: 100 0RF Rx Instructions: apply with cotton swab to site of pain amoxicillin-pot clavulanate 875-125 mg tablet 1 tablet PO Q12H 10 Days Qty: 20 0RF No Action fluoxetine 20 mg tablet 20 mg PO DAILY Rx Instructions: Take 1 tablet daily for 1 week, then take 2 tablets daily amlodipine 10 mg tablet 10 mg PO DAILY Qty: 30 1RF Follow-up/Referrals: UNKNOWN,DOCTOR [Primary Care Provider] - Stand Alone Forms: Work/School Release IP Time of Disposition: 11:19
--- OUTSIDE RECORDS SUMMARY | 2025-03-05 11:51 | XMS_ITS | Clinical Summary ---
Author Organization [facility] Address [address] [place] [id number] Care Team Providers Care Sports Equipment Supervisor Name Role Phone Betito Lopez MD Primary Care Provider [phone] Social History Tobacco Use Types Packs/Day Years Used Date Smoking Tobacco: Never Assessed Comments Unknown Sex and Gender Information Value Date Recorded Sex Assigned at Not on file Legal Sex Female 10:48 PM [employer]ER [employer] Gender Identity Not on file Sexual Orientation Not on file Plan of Treatment Health Maintenance Due Date Last Done Comments Cervical Cancer Screening Pa p Smear (Age 30 to 64) Every 3 Years 1988 Annual Physical 1991 Hepatitis C 2006 DTaP, Tdap and Td Vaccines ( 1 - Tdap) 2007 Hepatitis B Vaccines (1 of 3 - 19+ 3-dose series) 2007 Cervical Cancer Screening Pa p with HPV Testing (Age 30 to 64) Every 5 Years 2018 Cervical Cancer Screening with HPV 2018 COVID-19 Vaccine (2023-2 5 season) 2024 HPV Vaccines Aged Out No longer eligi ble based on patient's age to complete this topic Meningococcal B Vaccine Aged Out No l onger eligible based on patient's age to complete this topic Meningococcal Vaccine Aged Out No loy angie eligible based on patient's age to complete this topic Pneumococcal Vaccine: Pediat rics (0 to 5 Years) and At-Risk Patients (6 to 49 Years) Aged Out No longer eligible b ased on patient's age to complete this topic RSV Immunizations Under 20 Months Aged Out No longer eligible based on patient's age to complete this topic Insurance [employer] Care Teams Sports Equipment Supervisor Relationship Specialty Start Date End Date Betito Lopez MD [address] [place] [phone] PCP - General FAMILY PRACTICE 04/11/19
== END 2025-03-05 11:30 | disposition home or self-care (01) ==
PROVIDERS: Emergency Provider Nurse Practitioner Family
DX: K04.7 Periapical abscess without sinus (principal); E66.9 Obesity, unspecified; Z68.30 Body mass index [BMI] 30.0-30.9, adult; F41.9 Anxiety disorder, unspecified; F32.A Depression, unspecified
CPT/HCPCS: 99213; G0463

== ENCOUNTER 2025-08-23 10:19 | Emergency (ER) | payer SELFPAY ==
[2025-08-23 10:19] VITALS: BP 180/115; PULSE 86; RESP 16; TEMP 36.4; O2SAT 98
--- NOTE | 2025-08-23 10:24 | ED_ITS ---
HPI - Dental/Oral General Chief complaint: Dental/Oral Stated complaint: dental pain; high blood pressure Time Seen by Provider: 08/23/25 10:23 Source: patient Mode of arrival: ambulatory Limitations: no limitations History of Present Illness HPI Narrative: Patient is a 35-year-old female with left lower jaw pain in her teeth due to fractured teeth. It normally hurts but it is worse at this time. MD Complaint: tooth pain Location: Tooth # (Seventeen and 18) Onset (ago): day(s) (3) Duration: constant Severity: moderate Severity scale (1-10): 5 Relieving factors: nothing Exacerbating factors: chewing, cold, heat and drinking fluids Context: history of dental caries and poor dental care Treatment prior to arrival: none Related Data Home Medications ?Medication ?Instructions ?Recorded ?Confirmed ?Last Taken ?Type fluoxetine 20 mg tablet 20 mg PO DAILY 07/07/2202/06 Unknown History Allergies Allergy/AdvReac Type Severity Reaction Status Date / Time No Known Allergies Allergy Verified 08/23/25 10:25 Review of Systems Review of Systems: All systems reviewed & are unremarkable except as noted in HPI and below Constitutional: Constitutional: Reports no additional constitutional complaints Eyes: Eyes: Reports no additional eye complaints ENT: Reports system reviewed and no additional complaints, except as documented Cardiovascular: Cardiovascular: Reports no additional cardiovascular compl aints Respiratory: Respiratory: Reports no additional respiratory complaints Gastrointestinal: Gastrointestinal: Reports no additional gastrointestinal complaints Genitourinary: Genitourinary: Reports no additional female genitourinary co mplaints Musculoskeletal: Musculoskeletal: Reports no additional musculoskeletal complaints Integumentary/Breasts: Skin/Breast: Reports system reviewed and no additional complaints, except as docu Neurologic: Reports system reviewed and no additional complaints, except as documented Psychiatric: Psychiatric: Reports no additional psychiatric complaints Endocrine: Endocrine: Reports no additional endocrine complaints Hematologic/Lymphatic: Hematologic/Lymphatic: Reports no additional hematologic/lymphatic complaints Allergic/Immunologic: Allergic/Immunologic: Reports no additional allergic/immunologic complaints PMFSH Past Medical History Medical History Obesity Gestational diabetes Preeclampsia Anxiety Migraine Depression Family History Family History Father Diabetes mellitus Malignant neoplasm of prostate Pacemaker FHx: premature coronary heart disease, Onset Age: 17 [place] Social History Social History Smoking status: Never smoker Gender identity (if verbalized by the patient): Female Spiritual care concerns: No Exam Const: General: healthy appearing Nutritional Appearance: well nourished Orientation/consciousness: patient oriented x3 HENMT: Head: normal to inspection Ears: external ears normal Face/Nose/Sinus: Normal external nose present Eyes: Conjunctivae: conjunctivae normal Pupils: Equal, round and reactive pupils present EOM: EOMs intact bilaterally Neck: Neck: normal visual inspection Chest: Chest palpation & inspection: normal inspection of the chest Resp: Effort & Inspection: normal respiratory effort and not labored Auscultation: clear to auscultation bilaterally and no crackles Cardio: Rate: regular rate Rhythm: regular rhythm Heart sounds: no murmurs GI: Inspection: non-distended GI Palp: Yes Soft to palpation and No Tenderness to palpation present (GI) Auscultation: normal bowel sounds : General: Yes bladder normal to palpation Back/Spine/Pelvis: Back: no CVA tenderness Skin: General skin exam: normal color Rashes: no rashes Wounds: no wounds Neuro: General: patient oriented x3, moves all extremities and no meningeal signs Extrem: General: normal to inspection Psych: Mental Status: mental status grossly normal Affect: normal affect Attitude: cooperative Course Vital Signs Vital signs: Vital Signs Temperature 36.4 C 08/23/25 10:19 Pulse Rate 86 08/23/25 10:19 Respiratory Rate 16 08/23/25 10:19 Blood Pressure 180/115 H 08/23/25 10:19 Pulse Oximetry 98 08/23/25 10:19 Oxygen Delivery Room Air 08/23/25 10:19 Temperature 36.4 C 08/23/25 10:19 Pulse Rate 86 08/23/25 10:19 Respiratory Rate 16 08/23/25 10:19 Blood Pressure 180/115 H 08/23/25 10:19 Pulse Oximetry 98 08/23/25 10:19 Oxygen Delivery Room Air 08/23/25 10:19 MDM - Dental/Oral MDM Narrative Medical decision making narrative: Patient is a 35-year-old female with left lower jaw pain and dental pain. We will do Toradol. Ultram and Augmentin. Refill her blood pressure medicine of [facility]. Discharge Plan Discharge Clinical Impression: Maxilla pain Patient Disposition: Home Condition: Stable Instructions: Antibiotic Form, Toothache (ED) Additional Instructions: Please see a dentist as soon as possible. Patient Language: Kiswahili Prescriptions: New amlodipine [Norvasc] 10 mg tablet 10 mg PO DAILY Qty: 30 0RF tramadol 50 mg tablet 50 mg PO Q8H PRN (Reason: pain) Qty: 20 0RF Rx Instructions: 1-2 tabs per dose amoxicillin-pot clavulanate 875-125 mg tablet 1 tablet PO BID 10 Days Qty: 20 0RF No Action fluoxetine 20 mg tablet 20 mg PO DAILY Rx Instructions: Take 1 tablet daily for 1 week, then take 2 tablets daily ibuprofen 800 mg tablet 800 mg PO TID PRN (Reason: pain) Qty: 15 0RF lidocaine HCl [Lidocaine Viscous] 2 % solution 1 applic mucous membrane TID PRN (Reason: pain) Qty: 100 0RF Rx Instructions: apply with cotton swab to site of pain amoxicillin-pot clavulanate 875-125 mg tablet 1 tablet PO Q12H 10 Days Qty: 20 0RF amlodipine 10 mg tablet 10 mg PO DAILY Qty: 30 1RF Follow-up/Referrals: Jacob,PITO Cooper [Primary Care Provider, Unknown] Time of Disposition: 10:33
[2025-08-23] MEDS: KETOROLAC (*BKC) 60 MG/2 ML VIAL IM (10:37)
[2025-08-23 11:00] VITALS: BP 160/119; PULSE 69; RESP 18; O2SAT 99
--- OUTSIDE RECORDS SUMMARY | 2025-08-23 11:00 | XMS_ITS | Clinical Summary ---
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 Gender Identity Not on file Sexual Orientation Not on file Plan of Treatment Health Maintenance Due Date Last Done Comments Cervical Cancer Screening Pa p Smear (Age 30 to 64) Every 3 Years 1988 Annual Physical 1991 Hepatitis C 2006 DTaP, Tdap and Td Vaccines ( 1 - Tdap) 2007 Hepatitis B Vaccines (1 of 3 - 19+ 3-dose series) 2007 HPV Vaccines (1 - 3-dose SCD M series) 2015 Cervical Cancer Screening Pa p with HPV Testing (Age 30 to 64) Every 5 Years 2018 Cervical Cancer Screening with HPV 2018 COVID-19 Vaccine ( - 2023-2 5 season) 2025 Influenza Adult (#1) 2025 Meningococcal B Vaccine Aged Out No l [...] patient's age to complete this topic Insurance [employer] Care Teams Mirror Department Supervisor Relationship Specialty Start Date End Date Betito Lopez MD [address] [place] [phone] PCP - General FAMILY PRACTICE 04/11/19
== END 2025-08-23 11:00 | disposition home or self-care (01) ==
PROVIDERS: Emergency Provider Emergency Medicine; PCP Registered Nurse
DX: R68.84 Jaw pain (principal)
CPT/HCPCS: 96372; 99283; J1885